=== PATIENT | male | born 1980 | race Caucasian/White ===

== ENCOUNTER 2017-03-10 10:19 | Emergency (ER) | payer SELFPAY ==
[~2017-03-10] VITALS: Ht 172.7 cm; Wt 63.5 kg
[2017-03-10] MEDS ORDERED: KETOROLAC 60 MG/2 ML VIAL IM STA (11:30)
[2017-03-10] MEDS ORDERED: ASPIRIN 81 MG CHEW (CHILDREN'S ASA) PO ONE (11:30)
[2017-03-10] MEDS ORDERED: KETOROLAC 30 MG/ML VIAL ONE (11:44)
[2017-03-10] MEDS ORDERED: KETOROLAC 30 MG/ML VIAL IVP STA (11:47)
[2017-03-10 12:08] LABS: BASOPHILS # (AUTO) 0.1 10^3/uL (0.0-0.1); BASOPHILS % (AUTO) 1 % (0-10); EOSINOPHILS # (AUTO) 0.4 10^3/uL (0.0-0.3); EOSINOPHILS % (AUTO) 4 % (0-10); LYMPHOCYTES # (AUTO) 2.6 X 10^3 (1.0-4.0); LYMPHOCYTES % (AUTO) 27 % (12-44); MEAN CORPUSCULAR HEMOGLOBIN 28 PG (25-34); MEAN CORPUSCULAR HGB CONC 35 G/DL (32-36); MEAN CORPUSCULAR VOLUME 81 FL (80-99); MEAN PLATELET VOLUME 9.6 FL (7.4-10.4); MONOCYTES # (AUTO) 0.8 X 10^3 (0.0-1.0); MONOCYTES % (AUTO) 9 % (0-12); NEUTROPHILS # (AUTO) 5.7 X 10^3 (1.8-7.8); NEUTROPHILS % (AUTO) 59 % (42-75); PLATELET COUNT 285 10^3/uL (130-400); RED BLOOD COUNT 5.89 10^6/uL (4.35-5.85); RED CELL DISTRIBUTION WIDTH 13.6 % (10.0-14.5); WHITE BLOOD COUNT 9.6 10^3/uL (4.3-11.0)
--- NOTE | 2017-03-10 12:17 | Diagnostic Imaging Report ---
EXAMINATION: Upright portable radiograph of the chest. INDICATION: Chest pain. FINDINGS: The lungs are clear. The heart size is at the upper limits of normal. No effusion or pneumothorax. The mediastinum and tiana appear unremarkable. IMPRESSION: Borderline cardiac size. No focal infiltrates. Dictated by: Dictated on workstation # [id number]
--- NOTE | 2017-03-10 12:20 | ED Upper Extremity ---
General Chief Complaint: Upper Extremity Stated Complaint: CHEST PAIN FOR 3 WKS, LEFT SIDE GOING NUMB Nursing Triage Note: Pt c/o pain down L arm pain x3 weeks. Pt also c/o pain down L leg. Nursing Sepsis Screen: No Definite Risk History of Present Illness Time seen by provider: 11:30 Initial Comments Patient for reports for the last 3 weeks he has been having left-sided arm and leg pain. He also has occasional left-sided chest pain. He denies a previous history of cardiac disease. He reports he has not been taking his medications regularly or his chronic pain due to financial barriers. He is unsure the name of his medications were reports that he takes a analgesic and a muscle relaxant. Patient is hard of hearing, and he did not bring his hearing aids. Patient was brought by his father, who states that he has been very radical in nature lately. He has been difficult with his family. The father is unaware of what medications he takes but is concerned about his mental health. The patient denies any suicidal or homicidal thoughts. He is just very concerned about the pain in his left arm and leg. Pain/Injury Location: left shoulder, left arm (biceps) Method of Injury: unknown Modifying Factors: Improves With Pain Medication (patient reports using hydrocodone and a muscle relaxant however he is out of them at the present time. He has no tremors or and their indications of withdrawal) Allergies and Home Medications Allergies Coded Allergies: No Allergy Information Available (Unverified , 09/14/14) Home Medications Cyclobenzaprine HCl 10 Mg Tablet, 10 MG PO Q8H, #15 Ref 0 Prescribed by: FELICIA FAJARDO on 03/10/17 1252 Tramadol HCl 50 Mg Tablet, 50 MG PO Q8H PRN for PAIN-MILD TO MODERATE, #15 Ref 0 Prescribed by: FELICIA FAJARDO on 03/10/17 1252 Constitutional: no symptoms reported, see HPI EENTM: no symptoms reported, see HPI Respiratory: no symptoms reported, see HPI Cardiovascular: no symptoms reported, see HPI Gastrointestinal: no symptoms reported, see HPI Genitourinary: no symptoms reported, see HPI Musculoskeletal: see HPI, muscle pain (left arm and left leg), muscle cramps ( left upper and lower extremity), No neck pain Skin: no symptoms reported, see HPI Psychiatric/Neurological: No Symptoms Reported, See HPI, Denies Anxiety, Denies Emotional Problems, Denies Headache, Denies Numbness, Denies Paresthesia , Denies Seizure All Other Systems Reviewed Negative Unless Noted: Yes Past Gvpehjk-Vyyasr-Dzqgtu Hx Patient Social History Alcohol Use: Denies Use Recreational Drug Use: No Smoking Status: Current Everyday Smoker Type Used: Cigarettes Recent Foreign Travel: No Contact w/Someone Who Travel: No Recent Infectious Disease Expo: No Recent Hopitalizations: No Seasonal Allergies Seasonal Allergies: No Reviewed Nursing Assessment Reviewed/Agree w Nursing PMH: Yes Physical Exam Vital Signs Vital Sign - Last 12Hours 03/10/17 10:38 Temp 96.9 Pulse 78 Resp 18 B/P (MAP) 141/81 Pulse Ox 97 O2 Delivery Room Air Capillary Refill : Less Than 3 Seconds General Appearance: WD/WN, no apparent distress HEENT: PERRL/EOMI, normal ENT inspection, TMs normal, pharynx normal Neck: non-tender, full range of motion, supple, normal inspection Cardiovascular: normal peripheral pulses, regular rate, rhythm, no JVD Respiratory: chest non-tender, lungs clear, normal breath sounds, no respiratory distress, no accessory muscle use Gastrointestinal: normal bowel sounds, non tender, soft Back: normal inspection, no vertebral tenderness, No muscle spasm, No vertebral tenderness Shoulder: normal inspection, non-tender, soft tissue tenderness (left biceps pain reported by patient, no tenderness to palpation. Biceps and triceps power V /V. neurovascular status intact bilateral upper extremities) Elbow/Forearm: normal inspection, non-tender, no evidence of injury, normal ROM , Left Wrist: Yes normal inspection, Yes non-tender, Yes no evidence of injury, Yes normal ROM Neurologic/Tendon: normal sensation, normal motor functions, normal tendon functions Neurologic/Psychiatric: no motor/sensory deficits, alert, normal mood/affect, oriented x 3, other (patient compliant throughout exam with appropriate responses, and good eye contact) Skin: normal color, warm/dry Comments Patient ambulates with a normal heel toe gait, power V/V L4-S1 Bilat LEs. Patient reports occasional pain in the left calf. Negative Homans sign. Neurovascular status intact bilateral lower extremities Progress/Results/Core Measures Results/Orders Lab Results Laboratory Tests Test 03/10/17 11:55 Range/Units White Blood Count 9.6 4.3-11.0 10^3/uL Red Blood Count 5.89 H 4.35-5.85 10^6/uL Hemoglobin 16.7 13.3-17.7 G/DL Hematocrit 48 40-54 % Mean Corpuscular Volume 81 80-99 FL Mean Corpuscular Hemoglobin 28 25-34 PG Mean Corpuscular Hemoglobin Concent 35 32-36 G/DL Red Cell Distribution Width 13.6 10.0-14.5 % Platelet Count 285 130-400 10^3/uL Mean Platelet Volume 9.6 7.4-10.4 FL Neutrophils (%) (Auto) 59 42-75 % Lymphocytes (%) (Auto) 27 12-44 % Monocytes (%) (Auto) 9 0-12 % Eosinophils (%) (Auto) 4 0-10 % Basophils (%) (Auto) 1 0-10 % Neutrophils # (Auto) 5.7 1.8-7.8 X 10^3 Lymphocytes # (Auto) 2.6 1.0-4.0 X 10^3 Monocytes # (Auto) 0.8 0.0-1.0 X 10^3 Eosinophils # (Auto) 0.4 H 0.0-0.3 10^3/uL Basophils # (Auto) 0.1 0.0-0.1 10^3/uL Sodium Level 138 135-145 MMOL/L Potassium Level 4.3 3.6-5.0 MMOL/L Chloride Level 105 98-107 MMOL/L Carbon Dioxide Level 24 21-32 MMOL/L Anion Gap 9 5-14 MMOL/L Blood Urea Nitrogen 14 7-18 MG/DL Creatinine 0.83 0.60-1.30 MG/DL Estimat Glomerular Filtration Rate > 60 BUN/Creatinine Ratio 17 Glucose Level 91 70-105 MG/DL Calcium Level 10.1 8.5-10.1 MG/DL Magnesium Level 2.0 1.8-2.4 MG/DL Total Bilirubin 0.5 0.1-1.0 MG/DL Aspartate Amino Transf (AST/SGOT) 18 5-34 U/L Alanine Aminotransferase (ALT/SGPT) 49 0-55 U/L Alkaline Phosphatase 55 40-136 U/L Myoglobin 31.7 10.0-92.0 NG/ML Troponin I < 0.30 <0.30 NG/ML Total Protein 7.6 6.4-8.2 GM/DL Albumin 4.3 3.2-4.5 GM/DL My Orders Orders - FELICIA FAJARDO Cbc With Automated Diff (03/10/17 11:30) Magnesium (03/10/17 11:30) Chest 1 View, Ap/Pa Only (03/10/17 11:30) Ekg Tracing (03/10/17 11:30) Cardiac Profile 1 (03/10/17 11:30) Comprehensive Metabolic Panel (03/10/17 11:30) Myoglobin Serum (03/10/17 11:30) Aspirin Chewable Tablet (Baby Aspirin Ch (03/10/17 11:30) Saline Lock/Iv-Start (03/10/17 11:30) Ketorolac Injection (Toradol Injection) (03/10/17 11:30) Ketorolac Injection (Toradol Injection) (03/10/17 11:47) Ketorolac Injection (Toradol Injection) (03/10/17 11:44) Cyclobenzaprine Tablet (Flexeril Tablet) (03/10/17 12:48) Tramadol Tablet (Ultram Tablet) (03/10/17 12:48) Medications Given in ED Current Medications Medications Dose Ordered Sig/Myra Route Start Time Stop Time Status Last Admin Dose Admin Aspirin 324 mg ONCE ONCE PO 03/10/17 11:30 03/10/17 11:33 DC 03/10/17 11:54 324 MG Vital Signs/I&O Vital Sign - Last 12Hours 03/10/17 10:38 Temp 96.9 Pulse 78 Resp 18 B/P (MAP) 141/81 Pulse Ox 97 O2 Delivery Room Air Blood Pressure Mean: 101 Progress Note : Time: 11:30 Progress Note Initial evaluation completed, will complete and EKG, aspirin 324 mg chewable, CBC, CMP, troponin, chest x-ray, saline lock, and Toradol 30 mg IV. 1200 all labs essentially normal, patient reports resolution of his pain since taking the aspirin and having the Toradol. 1245 patient reports increased left arm pain, will administer tramadol 50 mg and Flexeril 10 mg po. 1300 patient became verbally aggressive demanding hydrocodone for his pain, discussed with the patient that his exam and lab workup do not indicate more aggressive management for his pain at this time. No records identified for this patient on Tra. He is unable to tell me the name of his physician in [place]. 1315 discussed plans for discharge with the patient, he reports being upset that hydrocodone will not be using his treatment plan. Encouraged that he follow up with his primary care provider for additional workup of his left arm pain to consider nerve studies or MRIs. Discussed at length with him at the present time there are no emergency medical conditions that need additional treatment. He will be discharged with cyclobenzaprine and tramadol. The patient verbalized being unhappy with this treatment option. 1330 after discharge, the patient's sister called and verbalized concerns about the patient's aggressive behaviors lately. She reports that he has an appointment in early April with mental health. Encouraged that she seek earlier referral for mental health if she has concerns. She can always call [place] or law enforcement, if she has concerns for the patient or her family' s safety. Throughout this emergency department visit the patient never demonstrated the need for mental health consult, he had slightly aggressive behaviors verbally towards this provider regarding pain medication. Otherwise his exam and behaviors were appropriate. ECG Initial ECG Impression Date: Mar 10, 2017 Initial ECG Impression Time: 12:07 Initial ECG Rate: 67 Initial ECG Rhythm: Normal Sinus Initial ECG Intervals: Normal Initial ECG Intervals WV 156, QRSD 112, QT 380, QTc 401, axis P 13, QRS 0, T 25 Initial ECG Impression: Normal Initial ECG Comparisson: No Previous ECG Available Comment Reviewed EKG with Dr. Grier agreed with interpretation. Diagnostic Imaging Diagonstic Imaging: Xray Plain Films/CT/US/NM/MRI: chest Comments NAME: ELISSA RIOS REC#: [id number] PT STATUS: REG ER : 1980 PHYSICIAN: FELICIA FAJARDO ADMIT DATE: 03/10/17/ER Draft Date of Exam:03/10/17 CHEST 1 VIEW, AP/PA ONLY EXAMINATION: Upright portable radiograph of the chest. INDICATION: Chest pain. FINDINGS: The lungs are clear. The heart size is at the upper limits of normal. No effusion or pneumothorax. The mediastinum and tiana appear unremarkable. IMPRESSION: Borderline cardiac size. No focal infiltrates. Dictated on workstation # [id number] Dict: 03/10/17 1212 Trans: 03/10/17 1217 [id number] Interpreted by: CLARY MCKEON MD Electronically signed by: Reviewed: Reviewed by Me Departure Impression Impression: Primary Impression: Myalgia Disposition: 01 HOME, SELF-CARE Condition: Improved Departure-Patient Inst. Decision time for Depature: 12:40 Referrals: NO,LOCAL PHYSICIAN (PCP/Family) Primary Care Physician Patient Instructions: Muscle and Bone Pain (DC) Add. Discharge Instructions: Activity as tolerated. May use Aleve 2 tablets every 12 hours for muscle and joint pains. Tylenol 650 mg for additional pain every 6 hours. Follow up with Healthcare provider in [place] if symptoms continue. Return to emergency department for chest pain, difficulty breathing, or new problems. All discharge instructions reviewed with patient and/or family. Voiced understanding. Scripts Cyclobenzaprine HCl (Cyclobenzaprine HCl) 10 Mg Tablet 10 MG PO Q8H for Spasms, #15 TAB 0 Refills Prov: FELICIA FAJARDO 03/10/17 Tramadol HCl (Tramadol HCl) 50 Mg Tablet 50 MG PO Q8H Y for PAIN-MILD TO MODERATE, #15 TAB 0 Refills Prov: FELICIA FAJARDO 03/10/17 FELICIA FAJARDO Mar 10, 2017 12:20
[2017-03-10 12:26] LABS: ALANINE AMINOTRANSFERASE 49 U/L (0-55); ALBUMIN 4.3 GM/DL (3.2-4.5); ANION GAP 9 MMOL/L (5-14); ASPARTATE AMINO TRANSFERASE 18 U/L (5-34); BILIRUBIN,TOTAL 0.5 MG/DL (0.1-1.0); BLOOD UREA NITROGEN 14 MG/DL (7-18); BUN/CREATININE RATIO 17; CALCIUM 10.1 MG/DL (8.5-10.1); CARBON DIOXIDE 24 MMOL/L (21-32); CHLORIDE 105 MMOL/L (98-107); CREATININE SERUM 0.83 MG/DL (0.60-1.30); GFR ESTIMATED > 60; GLUCOSE 91 MG/DL (70-105); POTASSIUM 4.3 MMOL/L (3.6-5.0); SODIUM 138 MMOL/L (135-145); TOTAL PROTEIN 7.6 GM/DL (6.4-8.2)
[2017-03-10 12:32] LABS: MYOGLOBIN SERUM 31.7 NG/ML (10.0-92.0)
[2017-03-10] MEDS ORDERED: CYCLOBENZAPRINE 10 MG (FLEXERIL) TAB PO STA (12:48)
[2017-03-10] MEDS ORDERED: TRAM50TA2 PO (12:52)
[2017-03-10] MEDS ORDERED: CYCL10TA9 PO (12:52)
[2017-03-10 13:27] VITALS: BP 130/76
--- OUTSIDE RECORDS SUMMARY | 2017-03-10 18:04 | XMS REPORT ---
Author Author MIGUE BLACKBURN [facility] [employer] Address Unknown Phone Unavailable Care Team Providers Care Receiving Manager Name Role Phone MIGUE BLACKBURN CP Unavailable Allergies, Adverse Reactions, Alerts Substance Reaction Event Type N.K.D.A. Info Not Available Non Drug Allergy Problems Problem Type Condition Code Onset Dates Condition Status Assessment Anxiety F41.9 Active Problem Unspecified hearing loss H91.90 Active Problem Hyperlipidemia E78.5 Active Problem Cervicalgia M54.2 Active Assessment Cervicalgia M54.2 Active Assessment Hyperlipidemia E78.5 Active Problem Family history of coronary arteriosclerosis Z82.49 Active Problem Anxiety F41.9 Active Medications Medication Code System Code Instructions Start Date End Date Status Dosage Diclofenac Potassium [facility] [address]-66 50 MG Orally Twice a day 1 tablet [address]ric[address] [facility] 12851553752 145 MG TAKE ONE TABLET BY MOUTH ONCE DAILY Cyclobenzaprine HCl [facility] [address]-07 10 MG Orally Three times a day 1 tablet Effexor XR [facility] [address]-66 150 MG Orally Once a day 1 capsule with food Procedures Procedure Coding System Code Date Office Visit, Est Pt., Level 3 CPT-4 02954 Sep 03, 2015 Vital Signs Date/Time: Sep 03, 2015 Temperature 97.7 F Weight 251.2 lbs Height 68 in BMI 38.19 Index Blood Pressure Diastolic 98 mmHg Blood Pressure Systolic 142 mmHg Cardiac Monitoring Heart Rate 96 bpm Results No Known Results Summary Purpose [employer] Submission
--- OUTSIDE RECORDS SUMMARY | 2017-03-10 18:04 | XMS REPORT ---
Author Author JAYDON NESBITT Organization [employer] Address Unknown Phone Unavailable Care Team Providers Care Grey Roll Man Name Role Phone JAYDON NESBITT Unavailable Allergies No Known Allergies Problems Problem Type Condition Code Onset Dates Condition Status Problem Urinary frequency 788.41 Active Problem Headache 784.0 Active Problem Encounter for long-term (current) use of other medications V58.69 Active Problem Palpitations 785.1 Active Problem Dizziness and giddiness 780.4 Active Problem Hyperlipemia 272.4 Active Problem Family history of coronary artery disease V17.3 Active Problem Right foot pain 729.5 Active Problem Pain in joint, shoulder region 719.41 Active Problem Chest pain, unspecified 786.50 Active Problem Cervicalgia 723.1 Active Problem Unspecified hearing loss 389.9 Active Medications Medication Code System Code Instructions Start Date End Date Status Dosage Cyclobenzaprine HCl [facility] [address]-81 10 MG Orally Three times a day Aug 24, 2015 1 tablet Diclofenac Potassium [facility] [address]-30 50 MG Orally Twice a day Aug 24, 2015 1 tablet Results No Known Results Summary Purpose [employer] Submission
== END 2017-03-10 13:27 | disposition home or self-care (01) ==
LOC: EDUNIT# 10:19 → ER 10:22
DX: M79.1 Myalgia (principal); R07.9 Chest pain, unspecified; M25.512 Pain in left shoulder; M79.622 Pain in left upper arm; M79.605 Pain in left leg; F17.210 Nicotine dependence, cigarettes, uncomplicated; Z91.14 Patient's other noncompliance with medication regimen
CPT/HCPCS: 36415; 71010; 80053; 83735; 83874; 84484; 85025; 93005; 96374

== ENCOUNTER 2020-07-16 15:05 | Inpatient (IN) | payer SELFPAY ==
[~2020-07-16] VITALS: Ht 187.9 cm; Wt 107.0 kg
[~2020-07-16 15:05] MED LIST: CYCL10TA9 PO; TRM50T PO
--- NOTE | 2020-07-16 15:18 | ED General ---
General Stated Complaint: SUBSTANCE ABUSE Source of Information: Patient, EMS, EMS Notes Reviewed, Old Records, RN/MD, RN Notes Reviewed Exam Limitations: No Limitations (ALANNA DOUGHERTY MD) History of Present Illness Date Seen by Provider: Jul 16, 2020 Time Seen by Provider: 15:05 Initial Comments This patient is a 40-year-old male presents to the emergency department with a history of methamphetamine use and abuse. Patient states he's been using methamphetamine daily for the past 9 years last used 2 days ago. Patient states he has not slept in about 8 or 9 days. Patient states he is hearing voices and telling him to harm himself. Patient denies any psychological history or diagnosis is. Patient is hearing impaired and wears hearing aids in ears bilaterally. He does have a speech impediment. Appears to be chronic. Patient was brought in by EMS. For luis. Timing/Duration: 2-3 Days Severity: Moderate Associated Systoms: Denies Symptoms (ALANNA DOUGHERTY MD) Allergies and Home Medications Allergies Coded Allergies: No Known Drug Allergies (Unverified , 07/16/20) Home Medications Unable to Obtain Active Prescriptions or Reported Meds Patient Home Medication List Home Medication List Reviewed: Yes (ALANNA DOUGHERTY MD) Review of Systems Review of Systems Constitutional: No no symptoms reported; see HPI; No chills, No diaphoresis, No dizziness, No fever, No malaise, No weakness, No weight gain, No weight loss, No other EENTM: No see HPI, No no symptoms reported, No ear discharge, No hearing loss, No ear pain, No blurred vision, No double vision, No eye pain, No tearing, No vision loss, No dental problems, No hoarseness, No mouth pain, No mouth swelling, No epistaxis, No nose congestion, No nose pain, No throat pain, No throat swelling, No other Respiratory: No no symptoms reported, No see HPI, No cough, No dyspnea on exert ion, No hemoptysis, No orthopnea, No phlegm, No short of breath, No stridor, No wheezing, No other Cardiovascular: No no symptoms reported, No see HPI, No chest pain, No edema, No Hx of Intervention, No palpitations, No syncope, No vascular heart diseas, No other Gastrointestinal: No RUQ, No LUQ, No RLQ, No LLQ, No no symptoms reported, No see HPI, No abdominal pain, No constipation, No diarrhea, No dysphagia, No hematemesis, No heartburn, No jaundice, No loss of appetite, No melena, No nausea, No vomiting, No other Genitourinary: No no symptoms reported, No see HPI, No decreased output, No discharge, No dysuria, No frequency, No hematuria, No hesitancy, No incontinence, No nocturia, No pain, No other Musculoskeletal: No no symptoms reported, No see HPI, No back pain, No gout, No joint pain, No joint swelling, No muscle pain, No muscle stiffness, No muscle cramps, No muscle twitching, No muscle weakness, No neck pain, No other Skin: No no symptoms reported, No see HPI, No change in color, No change in hair/nails, No dryness, No hx of skin cancer, No lesions, No lumps, No pruritus, No rash, No other Psychiatric/Neurological: See HPI, Other Hematologic/Lymphatic: See HPI (ALANNA DOUGHERTY MD) All Other Systems Reviewed Negative Unless Noted: Yes (ALANNA DOUGHERTY MD) Past Wfaynwg-Rijika-Cifhcb Hx Patient Social History Type Used: Cigarettes Recent Hopitalizations: No (ALANNA DOUGHERTY MD) Seasonal Allergies Seasonal Allergies: No (ALANNA DOUGHERTY MD) Past Medical History Surgeries: No Respiratory: No Cardiac: No Neurological: No Genitourinary: No Gastrointestinal: No Musculoskeletal: Yes (chronic neck pain) HEENT: Yes (hard of hearing) Cancer: No Psychosocial: No Integumentary: No (ALANNA DOUGHERTY MD) Physical Exam Vital Signs Capillary Refill : Height, Weight, BMI Height: 5'8.00" Weight: 140lbs. oz. 63.067306bz; BMI Method:Stated General Appearance: No Apparent Distress, WD/WN Respiratory: Chest Non Tender, Lungs Clear, Normal Breath Sounds, No Accessory Muscle Use, No Respiratory Distress Cardiovascular: Regular Rate, Rhythm, No Edema, No Gallop, No JVD, No Murmur, Normal Peripheral Pulses Gastrointestinal: Normal Bowel Sounds, No Organomegaly, No Pulsatile Mass, Non Tender, Soft Back: Normal Inspection, No CVA Tenderness, No Vertebral Tenderness Extremity: Normal Capillary Refill, Normal Inspection, Normal Range of Motion, Non Tender, No Calf Tenderness, No Pedal Edema Neurologic/Psychiatric: Alert, Oriented x3, No Motor/Sensory Deficits, Normal Mood/Affect, Other (patient appears to have auditory and visual hallucinations. Patient states name is talkative 10. Patient yells out started barking like a dog telling the nursing staff that this is scaring away the demons.) Skin: Normal Color, Warm/Dry (ALANNA DOUGHERTY MD) Progress/Results/Core Measures Suspected Sepsis SIRS Temperature: Pulse: Respiratory Rate: Laboratory Tests 07/16/20 15:25: White Blood Count 9.4 Blood Pressure / Mean: Laboratory Tests 07/16/20 15:25: Creatinine 1.00, Platelet Count 269, Total Bilirubin 0.5 (ALANNA DOUGHERTY MD) Results/Orders Lab Results Laboratory Tests Test 07/16/20 15:15 07/16/20 15:25 Range/Units Urine Color YELLOW Urine Clarity CLEAR Urine pH 7.0 5-9 Urine Specific Gentry <=1.005 1.016-1.022 Urine Protein NEGATIVE NEGATIVE Urine Glucose (UA) NEGATIVE NEGATIVE Urine Ketones NEGATIVE NEGATIVE Urine Nitrite NEGATIVE NEGATIVE Urine Bilirubin NEGATIVE NEGATIVE Urine Urobilinogen 0.2 < = 1.0 MG/DL Urine Leukocyte Esterase NEGATIVE NEGATIVE Urine RBC (Auto) NEGATIVE NEGATIVE Urine RBC NONE /HPF Urine WBC RARE /HPF Urine Squamous Epithelial Cells NONE /HPF Urine Crystals NONE /LPF Urine Bacteria NEGATIVE /HPF Urine Casts NONE /LPF Urine Mucus NEGATIVE /LPF Urine Culture Indicated NO Urine Opiates Screen NEGATIVE NEGATIVE Urine Oxycodone Screen NEGATIVE NEGATIVE Urine Methadone Screen NEGATIVE NEGATIVE Urine Propoxyphene Screen NEGATIVE NEGATIVE Urine Barbiturates Screen NEGATIVE NEGATIVE Ur Tricyclic Antidepressants Screen NEGATIVE NEGATIVE Urine Phencyclidine Screen NEGATIVE NEGATIVE Urine Amphetamines Screen POSITIVE H NEGATIVE Urine Methamphetamines Screen POSITIVE H NEGATIVE Urine Benzodiazepines Screen NEGATIVE NEGATIVE Urine Cocaine Screen NEGATIVE NEGATIVE Urine Cannabinoids Screen NEGATIVE NEGATIVE White Blood Count 9.4 4.3-11.0 10^3/uL Red Blood Count 4.93 4.35-5.85 10^6/uL Hemoglobin 14.2 13.3-17.7 G/DL Hematocrit 40 40-54 % Mean Corpuscular Volume 81 80-99 FL Mean Corpuscular Hemoglobin 29 25-34 PG Mean Corpuscular Hemoglobin Concent 36 32-36 G/DL Red Cell Distribution Width 13.1 10.0-14.5 % Platelet Count 269 130-400 10^3/uL Mean Platelet Volume 8.9 7.4-10.4 FL Neutrophils (%) (Auto) 72 42-75 % Lymphocytes (%) (Auto) 19 12-44 % Monocytes (%) (Auto) 8 0-12 % Eosinophils (%) (Auto) 1 0-10 % Basophils (%) (Auto) 1 0-10 % Neutrophils # (Auto) 6.7 1.8-7.8 X 10^3 Lymphocytes # (Auto) 1.7 1.0-4.0 X 10^3 Monocytes # (Auto) 0.7 0.0-1.0 X 10^3 Eosinophils # (Auto) 0.1 0.0-0.3 10^3/uL Basophils # (Auto) 0.1 0.0-0.1 10^3/uL Sodium Level 137 135-145 MMOL/L Potassium Level 3.9 3.6-5.0 MMOL/L Chloride Level 103 98-107 MMOL/L Carbon Dioxide Level 22 21-32 MMOL/L Anion Gap 12 5-14 MMOL/L Blood Urea Nitrogen 9 7-18 MG/DL Creatinine 1.00 0.60-1.30 MG/DL Estimat Glomerular Filtration Rate > 60 BUN/Creatinine Ratio 9 Glucose Level 89 70-105 MG/DL Calcium Level 9.5 8.5-10.1 MG/DL Corrected Calcium 9.3 8.5-10.1 MG/DL Total Bilirubin 0.5 0.1-1.0 MG/DL Aspartate Amino Transf (AST/SGOT) 28 5-34 U/L Alanine Aminotransferase (ALT/SGPT) 48 0-55 U/L Alkaline Phosphatase 58 40-136 U/L Total Protein 6.9 6.4-8.2 GM/DL Albumin 4.2 3.2-4.5 GM/DL Salicylates Level < 5.0 L 5.0-20.0 MG/DL Acetaminophen Level < 10 L 10-30 UG/ML Serum Alcohol < 10 <10 MG/DL My Orders Orders - ALANNA DOUGHERTY MD Alcohol (07/16/20 15:12) Acetaminophen (07/16/20 15:12) Cbc With Automated Diff (07/16/20 15:12) Comprehensive Metabolic Panel (07/16/20 15:12) Drug Screen Stat (Urine) (07/16/20 15:12) Urinalysis (07/16/20 15:12) Thyroid Stimulating Hormone (07/16/20 15:12) Ekg Tracing (07/16/20 15:12) Salicylate (07/16/20 15:12) Ziprasidone Injection (Geodon Injection) (07/16/20 15:21) Ziprasidone Injection (Geodon Injection) (07/16/20 15:45) Ziprasidone Injection (Geodon Injection) (07/16/20 15:41) Water (Sterile) For Injection (Sterile W (07/16/20 15:42) Diphenhydramine Injection (Benadryl Inje (07/16/20 17:00) Lorazepam Injection (Ativan Injection) (07/16/20 17:00) Medications Given in ED Current Medications Medications Dose Ordered Sig/Myra Route Start Time Stop Time Status Last Admin Dose Admin Ziprasidone 20 mg ONCE ONCE IM 07/16/20 15:45 07/16/20 15:46 DC 07/16/20 15:47 20 MG Vital Signs/I&O Capillary Refill : (ALANNA DOUGHERTY MD) Progress Note : Time: 17:00 Progress Note Patient appears to have acute psychosis. Patient is being loud and yelling and barking and images in the room. Patient has been given Geodon however still refusing to stay in the bed. Patient staff or complacent. Patient will be given Benadryl and Ativan in addition to the Geodon are given. We'll continue monitor patient. [address] Galdamez for Shift change. He will care and disposition this patient. (ALANNA DOUGHERTY MD) Progress Note : Progress Note Dr. Queen accepts the admission at [facility] (BESSY GALDAMEZ DO) ECG Initial ECG Impression Date: Jul 16, 2020 Initial ECG Impression Time: 15:30 Initial ECG Rate: 97 Initial ECG Rhythm: Normal Sinus Initial ECG Impression: Nonspecific Changes Comment Sinus rhythm with a heart rate of 97 right bundle-branch block. Nonspecific EKG changes. (ALANNA DOUGHERTY MD) Departure Impression Primary Impression: Acute psychosis Additional Impressions: Hallucinations Methamphetamine use disorder, moderate Disposition: 09 ADMITTED INPATIENT Condition: Stable Departure-Patient Inst. Referrals: NO,LOCAL PHYSICIAN (PCP/Family) Primary Care Physician Scripts Unable to Obtain Active Prescriptions or Reported Meds ALANNA DOUGHERTY MD Jul 16, 2020 15:18 BESSY GALDAMEZ DO Jul 17, 2020 02:46
[2020-07-16] MEDS ORDERED: ZIPRASIDONE INJECTION 20 MG in WATER (STERILE) FOR INJECTION 1.2 ML IM STA (15:21)
[2020-07-16 15:36] LABS: BACTERIA,URINE NEGATIVE /HPF; BILIRUBIN,URINE NEGATIVE (NEGATIVE); CLARITY,URINE CLEAR; COLOR,URINE YELLOW; GLUCOSE, URINE (UA) NEGATIVE (NEGATIVE); KETONES,URINE NEGATIVE (NEGATIVE); LEUKOCYTE ESTERASE ,URINE NEGATIVE (NEGATIVE); NITRITE,URINE NEGATIVE (NEGATIVE); PROTEIN,URINE NEGATIVE (NEGATIVE); WBC,URINE RARE /HPF
[2020-07-16 15:37] LABS: AMPHETAMINE SCREEN, URINE POSITIVE (NEGATIVE); BARBITURATE SCREEN URINE NEGATIVE (NEGATIVE); BENZODIAZEPINES SCREEN URINE NEGATIVE (NEGATIVE); CANNABINOID SCREEN, URINE NEGATIVE (NEGATIVE); COCAINE SCREEN URINE NEGATIVE (NEGATIVE); METHADONE STAT NEGATIVE (NEGATIVE); METHAMPHETAMINE SCREEN URINE S POSITIVE (NEGATIVE); OPIATE SCREEN URINE NEGATIVE (NEGATIVE); OXYCODONE STAT NEGATIVE (NEGATIVE); PROPOXYPHENE STAT NEGATIVE (NEGATIVE); TRICYCLIC ANTIDEPRESSANTS SCRE NEGATIVE (NEGATIVE)
[2020-07-16 15:38] LABS: BASOPHILS # (AUTO) 0.1 10^3/uL (0.0-0.1); BASOPHILS % (AUTO) 1 % (0-10); EOSINOPHILS # (AUTO) 0.1 10^3/uL (0.0-0.3); EOSINOPHILS % (AUTO) 1 % (0-10); HEMATOCRIT 40 % (40-54); HEMOGLOBIN 14.2 G/DL (13.3-17.7); LYMPHOCYTES # (AUTO) 1.7 X 10^3 (1.0-4.0); LYMPHOCYTES % (AUTO) 19 % (12-44); MEAN CORPUSCULAR HEMOGLOBIN 29 PG (25-34); MEAN CORPUSCULAR HGB CONC 36 G/DL (32-36); MEAN CORPUSCULAR VOLUME 81 FL (80-99); MEAN PLATELET VOLUME 8.9 FL (7.4-10.4); MONOCYTES # (AUTO) 0.7 X 10^3 (0.0-1.0); MONOCYTES % (AUTO) 8 % (0-12); NEUTROPHILS # (AUTO) 6.7 X 10^3 (1.8-7.8); NEUTROPHILS % (AUTO) 72 % (42-75); PLATELET COUNT 269 10^3/uL (130-400); WHITE BLOOD COUNT 9.4 10^3/uL (4.3-11.0)
[2020-07-16] MEDS ORDERED: ZIPRASIDONE 20 MG INJ (GEODON) VIAL IM ONE ×2 (15:41→15:45)
[2020-07-16] MEDS ORDERED: WATER (STERILE) FOR INJECTION 10 ML ONE (15:42)
--- NOTE | 2020-07-16 15:47 | NUR ---
Administered Geodon 20 mg IM as ordered which required pulling the dilution of Sterile water to mix.
[2020-07-16 15:59] LABS: ALANINE AMINOTRANSFERASE 48 U/L (0-55); ALBUMIN 4.2 GM/DL (3.2-4.5); ALKALINE PHOSPHATASE 58 U/L (40-136); BILIRUBIN,TOTAL 0.5 MG/DL (0.1-1.0); BUN/CREATININE RATIO 9; CALCIUM 9.5 MG/DL (8.5-10.1); CARBON DIOXIDE 22 MMOL/L (21-32); CHLORIDE 103 MMOL/L (98-107); GFR ESTIMATED > 60; GLUCOSE 89 MG/DL (70-105); POTASSIUM 3.9 MMOL/L (3.6-5.0); SALICYLATE < 5.0 MG/DL (5.0-20.0); SODIUM 137 MMOL/L (135-145); TOTAL PROTEIN 6.9 GM/DL (6.4-8.2)
[2020-07-16 16:00] LABS: ACETAMINOPHEN < 10 UG/ML (10-30)
--- NOTE | 2020-07-16 16:11 | NUR ---
Call to [facility] and spoke with Emerita for request to get mental health screen on a medically cleared pt. She reports neding pt name and and nature of visit and called [facility] with [facility]. Geovani responded quickly and reports he is busy and doing a screen and will be unable to complete this for us and await the After Hour resources we use.
--- NOTE | 2020-07-16 16:16 | NUR ---
Call to [facility], after hours Mental Health screeners and spoke with Anastasiia. She asked nature of screen then with the statement of Meth use in addition to insomnia and the hearing and or seeing Demons there was also a comment "yes" to the Dr he would feel like harming self because of voices not stopping. Anastasiia states, The patient sounds under influence of Meth and screening is likely not possible with just a patient that is high on Meth and nothing they can do."
--- NOTE | 2020-07-16 16:47 | NUR ---
Return call from After Hours screener that they will lay eyes on him for possible screen with next available. Tracking#[id number]
--- NOTE | 2020-07-16 16:50 | NUR ---
Dr to room to request patient to stop screaming/howling and shaking bedrails. Pt also crawling out of bed when Dr requests for him to stop it now as the ER is full and this is very much disturbing the other pts.
[2020-07-16] MEDS ORDERED: LORazepam INJ 2 MG/ML (ATIVAN) VIAL IVP ONE (17:00)
[2020-07-16] MEDS ORDERED: diphenhydrAMINE 50 MG/ML INJ (BENADRYL) IVP ONE (17:00)
--- NOTE | 2020-07-16 17:00 | NUR ---
Pt's bed removed from room and mattress placed on floor. Pt is about to break a rail with the outbursts he is having jerking rails while yelling that sounds like a "howl".
--- NOTE | 2020-07-16 17:16 | NUR ---
Faxed records to [facility]
--- NOTE | 2020-07-16 17:30 | NUR ---
Pt is lying on floor on his mattress sleeping with eyes closed, resp even and unlabored. Meds held as patient is not acting out and appears much calmer prior to going to sleep, med held for need when necessary. Dr pal.
--- NOTE | 2020-07-16 17:55 | NUR ---
Nalini with [facility] called to give RN a Zoom number to begin meeting. Zoom [phone]
--- NOTE | 2020-07-16 18:03 | NUR ---
Patient continues to tell screener he can not hear while volumes are full sound both computers being utilized. Pt has bilateral hearing aids and still speaks like nearly mute. Stacy, [facility] states she can not screen in this fashion via Zoom. Stacy calling the Emergency Operating Room Specialist back up screener with [facility] to request in person.
--- NOTE | 2020-07-16 18:20 | NUR ---
Stacy returned call and patient will not be screened by Geovani as he states, "There is an underlying situation that the pt is sleep deprived and high on Meth and just needs to sleep." Geovani states he will call the hospital ER in follow up in a.m. when their business hours begin according to Stacy to attempt this screening.
--- NOTE | 2020-07-16 18:50 | NUR ---
Oumou Cpaps RN.
--- NOTE | 2020-07-16 20:50 | NUR ---
ELISSA RIOS admitted to room 407-1, with an admitting diagnosis of ACUTE PSYCHOSIS, METH ABUSE, on 07/16/20 from [facility] via [facility], accompanied by EMT.ELISSA RIOS introduced to surroundings, call light, bed controls, phone, TV, temperature control, lights, meal times, smoking policy, visitor policy, side rail policy, bathrooms and showers. Patient Rights given to patient in the handbook. ELISSA RIOS verbalizes understanding that [facility] is not responsible for the loss or damage to any personal effects or valuables that are kept in the patients posession during their hospitalization. ELISSA RIOS verbalizes understanding of Interdisciplinary Patient Education. Patient and/or family were informed about the Rapid Response Team and its purpose.
[2020-07-16] MEDS ORDERED: LORazepam INJ 2 MG/ML (ATIVAN) VIAL ONE (20:57)
[2020-07-16] MEDS: LORazepam INJ 2 MG/ML (ATIVAN) VIAL IV PRN (21:00)
[2020-07-16 21:17] VITALS: BP 149/93
--- NOTE | 2020-07-16 23:06 | NUR ---
UPON ADMISSION WHILE ASKING QUESTIONS, PT STARTED TO VIGOROUSLY SHAKE THE BED AND SCREAM A FEW TIMES IN A ROW, ONE TIME DOSE OF 2MG IV ATIVAN GIVEN PER [facility] ORDER. RESPONDED WELL TO ATIVAN. DR BURTON CONTACTED TO ASK IF PT CAN HAVE A PRN ORDER, SINCE [facility] ORDER ONLY HAD A ONE TIME ORDER. ORDERED TO RESTART THAT ORDER Q2HRS PRN.
[2020-07-16 23:53] VITALS: BP 146/95
[2020-07-17 04:21] VITALS: BP 140/81
[2020-07-17 08:00] VITALS: BP 138/77
--- NOTE | 2020-07-17 09:11 | NUR ---
Patient has been very kind, calm, and collected since first assessment at 0730. Patient states that he has no desires of hurting himself or others and wants to "follow the path of To." Telesitter placed in patients room and live sitter left per house sup request.
--- NOTE | 2020-07-17 10:30 | NUR ---
Patient began shaking and screaming upon entering the room. He states "its happening again." Ativan administered at this time.
[2020-07-17] MEDS: LORazepam INJ 2 MG/ML (ATIVAN) VIAL IV PRN (10:31)
--- NOTE | 2020-07-17 10:57 | NUR ---
CM/SS: [facility] is contacted about a Mental Health Screen - The local office is closed due to . Call to the SAVE line - [phone] - Information given to Alison. She request information on pt and will notify screener of the request. REFERENCE NUMBER # [id number] Information is FAXED # [phone]
--- NOTE | 2020-07-17 11:25 | NUR ---
CM/SS: Visited with pt as to plan for being screened, and getting him some help. Pt reports that he can not hear via the zoom meeting. He needs to talk with someone in person. This worker wanted to ensure that was the best way for pt to be screened. Pt reports he prefers to read lips or be able to understand the person that is talking to him. Call from [facility] [phone] [facility] - Made the request that pt be screened in person due to being hearing impaired. She will reach out to [facility] to see if they have someone to screen that pt in person. This worker will follow up.
[2020-07-17 12:00] VITALS: BP 153/85
--- NOTE | 2020-07-17 12:59 | History & Physical-Hospitalist ---
History of Present Illness HPI/Chief Complaint Gilbert Christopher is a 40-year-old male who presented to with acute psychosis. He tells me that he had been using methamphetamine. He says that he hears voices that were telling him to hurt himself. He says that the voices get worse when he is using drugs. He says that he still hears them whenever he is not on drugs though. He denies any plans to harm himself or others at this time. He denies any other drug use. He denies any alcohol use. He reports no past medical history. He denies any history of any psychiatric diagnoses. He denies any history of bipolar or schizophrenia. Source: patient Exam Limitations: no limitations Date Seen 07/17/20 Time Seen by a Provider: 10:15 Attending Physician Heather Back MD PCP No,Local Physician Referring Physician Date of Admission Jul 16, 2020 at 20:50 Home Medications & Allergies Home Medications Reviewed patient Home Medication Reconciliation performed by pharmacy medication reconciliations appraisal technician and/or nursing. Patients Allergies have been reviewed. Allergies Allergies Coded Allergies No Known Drug Allergies (Bbxviseoou79/10/20) Past Wjzivsv-Rrmxgq-[id number] Hx Past Med/Social Hx: Reviewed Nursing Past Med/Soc Hx Patient Social History Alcohol Use: Denies Use Recreational Drug Use: Yes (Meth daily by hx for 9 yrs, last used 2 days ago) Smoking Status: Unknown if Ever Smoked Type Used: Cigarettes Recent Foreign Travel: No Contact w/other who traveled: No Recent Hopitalizations: No Recent Infectious Disease Expo: No Seasonal Allergies Seasonal Allergies: No Past Medical History Hearing Impairment: Bilateral Hearing Aide History of Blood Disorders: No Review of Systems Constitutional: no symptoms reported EENTM: no symptoms reported Respiratory: no symptoms reported Cardiovascular: no symptoms reported Gastrointestinal: no symptoms reported Genitourinary: no symptoms reported Musculoskeletal: no symptoms reported Skin: no symptoms reported Psychiatric/Neurological: Other (auditory hallucinations) Physical Exam Physical Exam Vital Signs Vital Signs - First Documented 07/16/20 15:10 Temp 36.4 Pulse 103 Resp 20 B/P (MAP) 148/99 (115) Pulse Ox 98 O2 Delivery Room Air Capillary Refill : Less Than 3 Seconds Height, Weight, BMI Height: 5'8.00" Weight: 140lbs. oz. 63.707429fi; 31.15 BMI Method:Stated General Appearance: No Apparent Distress, Anxious, Obese HEENT: PERRL/EOMI, Pharynx Normal Neck: Normal Inspection, Supple Respiratory: Lungs Clear, Normal Breath Sounds, No Respiratory Distress Cardiovascular: Regular Rate, Rhythm, No Edema, No Murmur Gastrointestinal: Normal Bowel Sounds, Non Tender, Soft Extremity: Normal Inspection, Non Tender, No Pedal Edema Neurologic/Psychiatric: Alert, No Motor/Sensory Deficits Skin: Normal Color, Warm/Dry Results Results/Procedures Labs Laboratory Tests 07/16/20 15:25 Patient resulted labs reviewed. Assessment/Plan Admission Diagnosis acute psychosis Admission Status: Inpatient Order (span 2 midnights) Reason for Inpatient Admission: Needs psychiatric evaluation Assessment and Plan Brief psychotic episode Possible schizophrenia Acute methamphetamine intoxication Urine tox positive for amphetamine and methamphetamine Reporting auditory hallucinations [facility] planning to evaluate for psychiatric placement adult services librarian consulted, appreciate assistance Medically stable Diagnosis/Problems Diagnosis/Problems (1) Brief psychotic disorder Status: Acute (2) Methamphetamine use disorder, moderate Status: Acute (3) Acute psychosis Status: Acute (4) Hallucinations Status: Acute HEATHER BACK MD Jul 17, 2020 12:59
--- NOTE | 2020-07-17 14:09 | NUR ---
CM/SS: Follow up with [facility] - Alison as to the status of the screen. She reports they have not been able to reach anyone at [facility]. The number they are calling is the [phone]. This worker will follow up with Shon Avila with [facility]. Telephone Call to Shon Avila - [facility] - letting him know the issues with [facility] not being able to reach anyone. Shon will call and follow as to the status of the screen.
--- NOTE | 2020-07-17 15:39 | NUR ---
I SPOKE WITH THE PATIENT AND HE STATES THAT HE ISN'T TAKING ANY MEDICATIONS AT THIS TIME.
[2020-07-17 16:10] VITALS: BP 128/83
--- NOTE | 2020-07-17 17:19 | NUR ---
CM/SS: Ella Fisher from [facility] here to screen pt. - she will leave recommendations for pt, once assessment is completed. This worker will follow up.
[2020-07-17] MEDS: LORazepam INJ 2 MG/ML (ATIVAN) VIAL IVP PRN (17:56)
--- NOTE | 2020-07-17 18:08 | NUR ---
Patient begins getting very upset that no one is sitting in the room with him. He states he wants a visitor and "is that too much to ask?" Notified patient that we have someone sitting outside his room at this time but we will come in to check on him often. Ativan administered at this time.
[2020-07-17 19:22] VITALS: BP 135/79
[2020-07-17 23:44] VITALS: BP 139/89
[2020-07-18] MEDS: LORazepam INJ 2 MG/ML (ATIVAN) VIAL IVP PRN ×3 (00:13→10:58)
[2020-07-18 03:45] VITALS: BP 122/78
[2020-07-18 08:00] VITALS: BP 146/90
--- NOTE | 2020-07-18 11:02 | NUR ---
CM/SS: Telephone call from Shon Avila - he is following up on the screen. He reports we can either seek care for pt around drug and alcohol use as well behavioral health due to the hearing voices. This worker will follow up.
--- NOTE | 2020-07-18 11:04 | NUR ---
CM/SS: Call to [facility] for detox bed - [phone] - they are currently full and are unable to accept pt for detox.
--- NOTE | 2020-07-18 11:07 | NUR ---
CM/SS: Visited with pt as to plan related to his discharge and getting him help. Plan: Undetermined as this time - seeking behavioral health and drug and alcohol treatment Summary: Pt seems a little agitated today, he reports he feels funny, by putting his hands on his chest and stomach. Seems a little tearful. He is encouraged that we are trying to get him some help - explained we would need to get a COVID Swab test. CHARLIE Lynch is present in the room at the time of the visit. Pt is encouraged to read his bible and his devotional books. He seems to be comforted by this. This worker will follow up.
--- NOTE | 2020-07-18 11:11 | NUR ---
CM/SS: Telephone call to [facility] ( [facility]) [phone] to determine bed availability - they are wanting a negative COVID test to be done prior to accepting pt. This worker will follow up.
--- NOTE | 2020-07-18 11:43 | Progress Note - Hospitalist ---
Subjective HPI/CC On Admission Date Seen by Provider: Jul 18, 2020 Time Seen by Provider: 08:50 Gilbert Christopher is a 40-year-old male who presented to with acute psychosis. He tells me that he had been using methamphetamine. He says that he hears voices that were telling him to hurt himself. He says that the voices get worse when he is using drugs. He says that he still hears them whenever he is not on drugs though. He denies any plans to harm himself or others at this time. He denies any other drug use. He denies any alcohol use. He reports no past medical h istory. He denies any history of any psychiatric diagnoses. He denies any history of bipolar or schizophrenia. Subjective/Events-last exam He is sleeping upon arrival. He reports being very tired. He says he had more hallucinations this morning. He was not sure what the voices were telling him. Objective Exam Vital Signs Vital Signs Date Time Temp Pulse Resp B/P (MAP) Pulse Ox O2 Delivery O2 Flow Rate FiO2 07/18/20 08:00 Room Air 07/18/20 08:00 36.3 92 18 146/90 (108) 98 Capillary Refill : Less Than 3 Seconds General Appearance: No Apparent Distress, Obese Respiratory: Lungs Clear, Normal Breath Sounds, No Respiratory Distress Cardiovascular: Regular Rate, Rhythm, No Edema, No Murmur Gastrointestinal: Normal Bowel Sounds, Non Tender, Soft Extremity: Normal Inspection, Non Tender, No Pedal Edema Neurologic/Psychiatric: Alert, Normal Mood/Affect Skin: Normal Color, Warm/Dry Results/Procedures Lab Patient resulted labs reviewed. Assessment/Plan Assessment and Plan Assess & Plan/Chief Complaint Brief psychotic episode Possible schizophrenia Possible drug-induced psychosis Acute methamphetamine intoxication Urine tox positive for amphetamine and methamphetamine Reporting continued auditory hallucinations [facility] evaluating for psychiatric placement software [employer] web [employer] consulted, appreciate assistance Medically stable COVID pending for placement Diagnosis/Problems Diagnosis/Problems (1) Brief psychotic disorder Status: Acute (2) Methamphetamine use disorder, moderate Status: Acute (3) Acute psychosis Status: Acute (4) Hallucinations Status: Acute NAJMA BACK MD Jul 18, 2020 11:43
--- NOTE | 2020-07-18 14:01 | NUR ---
"RD ASSESSMENT PMHx: methamphetamine use; no significant PMH; CC - acute psychosis PT INTERACTION: Pt was awake and pleasant during nutrition assessment. Pt states current appetite is good. Note avg PO intake 100% x1d, per chart review. Pt states following a regular diet at home, and has no issues with chewing/swallowing food as pt has dentures. Pt states no recent issues with nausea, vomiting, constipation, or diarrhea, and that his last BM was 07/17. Note pt not currently on bowel regimen per chart review. Pt states unsure of recent wt changes. Note unable to determine recent wt hx, per chart review. ABNORMAL NUTRITION-RELATED LAB VALUES *Labs WNL at this time Est. kcal needs: 5608-8541 kcal | 15-20 kcal/kg Est. Pro needs: 86-107 g Pro | 0.8-1.0 g Pro/kg PES STATEMENT: Given current appetite and PO intake, no nutrition diagnosis at this time (NO-1.1). INTERVENTION: Continue with current diet order of Regular diet. Discontinue current supplementation order of Ensure Enlive with meals TID. Pt currently eating >75% meals. Will continue to follow and reassess as pt needs, intake, and status change. Shelbi Patino, MS RD LD"
[2020-07-18] MEDS: LORazepam INJ 2 MG/ML (ATIVAN) VIAL IV PRN (14:47)
--- NOTE | 2020-07-18 15:56 | NUR ---
CM/SS follow up. CM/SS assisting the social service coordinator, Vira. CM/SS contacted [facility] to follow up on referral. The worker reports that they haven't heard anything about this patient yet because they needed to know the Covid test was negative. CM/SS gave report on clinical. She requested that the physician Dr. Orlando contact them for a doc to doc. Dr. Orlando informed this sw that they will accept patient. CM/SS will work on transportation.
[2020-07-18 16:00] VITALS: BP 135/94
--- NOTE | 2020-07-18 17:00 | NUR ---
called report to [facility] and spoke to Sammie RN, verbalized understanding of patient report, and notified of negative COVID test. patient will go to room 302 and staff is ready
--- NOTE | 2020-07-18 17:01 | NUR ---
CM/SS finalized discharge. Plan: Patient is being discharged to [facility] [address] 07/18. [facility] Transportation agency will transport. Room: 302 Physician: Dr. Harris
[2020-07-18 18:00] VITALS: BP 135/94
== END 2020-07-18 18:00 | DRG 885 ==
LOC: EDUNIT# 15:05 → ER FS 15:07 → 4TH 20:50
PROVIDERS: ADMIT Internal Medicine; ATTEND Internal Medicine
DX: F23 Brief psychotic disorder (principal); F20.9 Schizophrenia, unspecified; F15.122 Other stimulant abuse with intoxication with perceptual disturbance; R47.9 Unspecified speech disturbances; E66.9 Obesity, unspecified; H91.93 Unspecified hearing loss, bilateral; Z87.891 Personal history of nicotine dependence; Z68.31 Body mass index [BMI] 31.0-31.9, adult; Z20.828 Contact with and (suspected) exposure to other viral communicable diseases; Z97.4 Presence of external hearing-aid
CPT/HCPCS: 36415; 80053; 80306; 80320; 80329; 81000; 84443; 85025; 87635; 93005